=== PATIENT | female | born 1985 | race Caucasian/White ===

== ENCOUNTER 2022-08-03 09:16 | Emergency (ER) | payer MEDICAID, SELFPAY ==
[2022-08-03 09:25] VITALS: BP 114/75; PULSE 61; RESP 16; TEMP 37.1; O2SAT 100; BMI 25.7
--- NOTE | 2022-08-03 09:58 | ED.GENADULT ---
HPI - General Adult General Date Seen: 08/03/22 Chief complaint: Nausea/Vomiting Stated complaint: nauseous, had tick bite Time Seen by Provider: 08/03/22 09:44 Source: patient Mode of arrival: ambulatory Limitations: no limitations History of Present Illness HPI narrative: Patient is a 37-year-old woman who presents for evaluation of a couple weeks of nausea, bloating, heartburn, constipation/diarrhea. No black or bloody stools. She has a history of IBS but says it is typically pretty well controlled. She has our clinic doctor yesterday and had labs done, called there today and they recommended that she come to the ER. Her CBC was normal, sed rate was 33, CRP was 0.3 in review of her online chart. She has not had vomiting or fevers. She notes that a couple weeks ago she was exposed to a cousin who had a stomach flu, several coworkers who were sick, she helped a hoarder friend clean out her house and was around a lot of pig hoop and a animal, and she also notes that she saw a wood tick crawling on her skin. She had a bug bite but she does not know that the bug bite had anything to do with the wood tick. She says that she typically uses nicola when she has nausea which works well but it has not been helping. She says that she has been hesitant to take any medication because she has reactions to so many medications, she does not know if she was prescribed anything for nausea at her regular clinic. She says that she in her primary doctor have an understanding that generally she does not take any medications because of concern over reactions. She says that she knows something is very wrong with her. She currently lives in [place], is moving to the [facility] to be closer to her boyfriend. She does not smoke or drink. Related Data Previous Rx's Medication Instructions Recorded ondansetron 4 mg disintegrating 4 mg PO Q8H PRN nausea and 08/03/22 tablet vomiting #7 tabs Allergies Allergy/AdvReac Type Severity Reaction Status Date / Time amoxicillin Allergy Hives Verified 08/03/22 09:35 Penicillins Allergy Hives Verified 08/03/22 09:35 Sulfa (Sulfonamide Allergy Hives Verified 08/03/22 09:35 Antibiotics) cheese AdvReac Uncoded 06/21/23 11:04 Review of Systems Status of ROS: Reports: 10 or more systems reviewed and unremarkable except as noted in History and below [facility] Social History Smoking Status: Never smoker Second hand tobacco smoke exposure: No How often do you have a drink containing alcohol: never How often do you have six or more drinks on one occasion: Never AUDIT-C Alcohol total score: 0 Non-prescribed substance use: denies use service: No Exam Narrative: Exam Narrative: Vital signs as noted above. In general, an alert, nontoxic woman. She looks comfortable. Breathing easily. Head: Normocephalic, atraumatic. Eyes: Pupils are equal reactive. Extraocular movements are full. Conjunctivae are normal. ENT: Mucous membranes are moist. Throat is normal. Neck: Supple without lymphadenopathy. Heart: Regular rate and rhythm. No murmur or rub. Lungs: Clear bilaterally. No increased work of breathing, crackles or wheezes. Abdomen: Soft and nontender. No organomegaly. Bowel sounds present. Extremities: Well perfused. No edema. No calf tenderness. Pulses intact. Neurologic: Patient is alert and oriented to person and place. Speech is fluent. Face is symmetric. Moves all extremities equally. Affect: Anxious, slightly tearful. Skin: Warm and dry. Well perfused. Const: Vital Signs, click to edit/add: Vital Signs - 24 hr 08/03/22 09:25 Temperature 98.7 F Pulse Rate [Left P ulse Oximeter] 61 Respiratory Rate 16 Blood Pressure [Ri ght Upper Arm] 114/75 Pulse Oximetry 100 Oxygen Delivery Me thod Room Air Documenting provider has reviewed patient's vital signs: yes Course Course Hospital Course: Patient is a couple weeks of a nonspecific GI symptoms, possibly related to gastritis or peptic ulcer disease, IBS, gastroenteritis. A surgical cause such as appendicitis, cholecystitis, bowel obstruction felt to be much less likely. I discussed with her that I think CT scanning is unlikely to be very helpful in her case. I reviewed her labs from clinic, will go ahead and check a metabolic panel as well as LFTs here. If those are normal, I recommended that we treat this symptomatically, try giving her some Zofran, and it may make sense for her to see Gastroenterology as an outpatient. She does feel that constipation may be playing a role in this. She has tried a dose of MiraLax as well as a couple of other homeopathic remedies, but a more aggressive approach to constipation may be helpful for her as well. I would defer to Gastroenterology in terms of prescribing medications for IBS, but general measures such as continued use of MiraLax, increased fiber, possibly a dose of milk of magnesia could be attempted. Patient refuses Zofran here. Labs are normal including electrolytes, BUN of 14, creatinine 0.9, blood sugar of 83. LFTs are within normal limits as well. test here is negative as well. I did prescribe some Zofran if she would like to use that at home. She says that she talked to her primary doctor who felt that referral to GI would be appropriate at this time. We talked about other options for management of constipation as well. For acute changes such as fevers, bloody stools, severe pain, return to the emergency department. Otherwise outpatient follow-up as planned. Vital Signs Vital signs: Initial Vital Signs Temperature 98.7 F 08/03/22 09:25 Temperature Source Temporal Artery Scan 08/03/22 09:25 Pulse Rate 61 08/03/22 09:25 Respiratory Rate 16 08/03/22 09:25 Blood Pressure 114/75 08/03/22 09:25 Blood Pressure Mean 88 08/03/22 09:25 Blood Pressure Position Sitting 08/03/22 09:25 Pulse Oximetry 100 08/03/22 09:25 Oxygen Delivery Method Room Air 08/03/22 09:25 Vital Signs Temperature 98.7 F 08/03/22 09:25 Pulse Rate 61 08/03/22 09:25 Respiratory Rate 16 08/03/22 09:25 Blood Pressure 114/75 08/03/22 09:25 Pulse Oximetry 100 08/03/22 09:25 Oxygen Delivery Method Room Air 08/03/22 09:25 Temperature 98.7 F 08/03/22 09:25 Pulse Rate 61 08/03/22 09:25 Respiratory Rate 16 08/03/22 09:25 Blood Pressure 114/75 08/03/22 09:25 Pulse Oximetry 100 08/03/22 09:25 Oxygen Delivery Method Room Air 08/03/22 09:25 Medical Decision Making Lab Data Labs: Lab Results 08/03/22 Range/Units 10:10 Sodium 137 (135-149) mmol/L Potassium 4.2 (3.6-5.1) mmol/L Chloride 103 (96-114) mmol/L Carbon Dioxide 28 (20-32) mmol/L BUN 14 (5-24) mg/dL Creatinine 0.9 (0.5-1.5) mg/dL Estimated Creat Clear 81.67 Estimated GFR 86 ml/min Glucose 83 (60-115) mg/dL Calcium 9.2 (8.4-10.6) mg/dL Total Bilirubin 1.2 (0.1-1.5) mg/dL Direct Bilirubin 0.0 (0.0-0.5) mg/dL AST 23 (12-35) U/L ALT 20 (4-35) U/L Alkaline Phosphatase 35 L (40-150) U/L Total Protein 7.2 (6.0-8.3) g/dL Albumin 4.2 (3.3-5.0) g/dL HCG, Qual Negative (Negative) Discharge Plan Discharge Clinical Impression: Abdominal bloating, Nausea Patient Disposition: Home, Self-Care Condition: Stable Instructions: Acute Nausea and Vomiting (ED) Additional Instructions: You can use Zofran if needed for nausea and/or vomiting. Would recommend ongoing use of MiraLax, this can take several days up to a week to begin working. Increase fiber and fluids. Primary care followup if you are not improving, consider GI follow-up. Return to the emergency department for new symptoms such as fevers, black or bloody stools, severe pain. Prescriptions: New ondansetron 4 mg tablet,disintegrating 4 mg PO Q8H PRN (Reason: nausea and vomiting) Qty: 7 0RF Stand Alone Forms: [facility] Info Instructions
[2022-08-03 10:31] LABS: Albumin* 4.2 g/dL (3.3-5.0); Chloride* 103 mmol/L (96-114); Sodium* 137 mmol/L (135-149)
[2022-08-03 10:32] LABS: Potassium* 4.2 mmol/L (3.6-5.1)
[2022-08-03 10:34] LABS: Alkaline Phosphatase* 35 U/L (40-150); Aspartate Amino Transferase* 23 U/L (12-35); Bilirubin Total* 1.2 mg/dL (0.1-1.5); Blood Urea Nitrogen* 14 mg/dL (5-24); Calcium* 9.2 mg/dL (8.4-10.6); Carbon Dioxide* 28 mmol/L (20-32); Creatinine* 0.9 mg/dL (0.5-1.5); Est. Creatinine Clearance* 81.67; Estimated Glomerular Filt Rate 86 ml/min; Glucose* 83 mg/dL (60-115); Total Protein* 7.2 g/dL (6.0-8.3)
[2022-08-03 10:35] LABS: Alanine Aminotransferase* 20 U/L (4-35)
--- NOTE | 2022-08-03 10:38 | ED.NURSE ---
Pt states she had a similar episode when she was 12 years old, was impacted with BM.
[2022-08-03 12:44] LABS: HCG Qualitative Serum* Negative (Negative)
== END 2022-08-03 11:32 | disposition home or self-care (01) ==
PROVIDERS: Emergency Provider Emergency Medicine
DX: R11.0 Nausea (principal); R14.0 Abdominal distension (gaseous)
CPT/HCPCS: 36415; 80048; 80076; 84703; 99283; 99284